=== PATIENT | female | born 1950 ===

== ENCOUNTER → 2018-07-06 | Outpatient (CLI) | payer OTHER, MEDICAID | LOC: BHLMT 10:45 | PROVIDERS: ATTEND Nurse Practitioner Family | DX: R55 Syncope and collapse (principal); I25.10 Atherosclerotic heart disease of native coronary artery without angina pectoris; I10 Essential (primary) hypertension; E11.9 Type 2 diabetes mellitus without complications; Z72.0 Tobacco use | CPT/HCPCS: 93005-PO ==

== ENCOUNTER → 2018-07-13 | Outpatient (CLI) | payer OTHER, MEDICAID | LOC: BHFA 11:30 | PROVIDERS: ATTEND Internal Medicine Cardiovascular Disease | DX: R55 Syncope and collapse (principal) ==